=== PATIENT | male | born 1995 | race Caucasian/White ===

== ENCOUNTER 2021-08-25 01:11 | Emergency (ER) | payer OTHER, BC ==
[~2021-08-25] VITALS: Ht 195.6 cm; Wt 108.9 kg
[~2021-08-25 01:11] MED LIST: FLEXERIL; HYDROCODON-ACE1 EAC5; NORCO 10-325 T1 EACH PO; PERCOCET 5-3251 EACH PO
[2021-08-25] MEDS ORDERED: TRAMADOL 50 MG50 MG PO (01:25)
[2021-08-25] MEDS ORDERED: HYDROCODON-ACE1 EAC7 PO (02:47)
[2021-08-25] MEDS ORDERED: NORFLEX100 MG PO (02:47)
[2021-08-25] MEDS ORDERED: CEPHALEXIN500 MG PO (02:49)
[2021-08-25 03:20] VITALS: BP 130/72
== END 2021-08-25 03:20 | disposition home or self-care (01) ==
LOC: M.ERS 01:11
DX: S80.12XA Contusion of left lower leg, initial encounter (principal); S80.11XA Contusion of right lower leg, initial encounter; Z98.890 Other specified postprocedural states; Z79.899 Other long term (current) drug therapy; V89.2XXA Person injured in unspecified motor-vehicle accident, traffic, initial encounter; Y93.I9 Activity, other involving external motion; Y92.488 Other paved roadways as the place of occurrence of the external cause; Y99.8 Other external cause status